=== PATIENT | male | born 1990 | race Caucasian/White ===

== ENCOUNTER → 2016-06-04 | Outpatient (CLI) | payer BC | LOC: MW.CHFP 10:51 | PROVIDERS: ATTEND Physician Assistant | DX: R05 Cough (principal) | CPT/HCPCS: 87804 ==

== ENCOUNTER 2021-09-11 16:04 | Emergency (ER) | payer BC ==
[2021-09-11] MEDS ORDERED: Ketorolac 60 MG/2 ML SDV IM ONE (16:32)
[2021-09-11] MEDS ORDERED: Orphenadrine 60 MG/2 ML Inj IM ONE (16:32)
== END 2021-09-11 18:19 | disposition home or self-care (01) ==
LOC: MW.ED 16:04
DX: M54.6 Pain in thoracic spine (principal); K21.9 Gastro-esophageal reflux disease without esophagitis; Z88.5 Allergy status to narcotic agent; Z88.0 Allergy status to penicillin; Z79.899 Other long term (current) drug therapy
CPT/HCPCS: 72070; 72100; 96372; 99283; J1885; J2360

== ENCOUNTER 2024-07-12 23:55 | Emergency (ER) | payer BC ==
[2024-07-13] MEDS ORDERED: Naloxone 0.4 MG/ML SDV IVPUSH PRN (06:42)
[2024-07-13] MEDS: Ketorolac 30 MG/ML SDV IVPUSH ONE (06:52)
[2024-07-13] MEDS: Morphine 2 MG/ML SYRINGE IVPUSH ONE (06:53)
[2024-07-13] MEDS: Acetaminophen 325 MG Tab PO ONE (08:04)
[2024-07-13] MEDS: LORazepam 0.5 MG Tab PO ONE (08:05)
[2024-07-13] MEDS: oxyCODONE 5 MG Tab PO ONE (11:06)
== END 2024-07-13 12:19 | disposition home or self-care (01) ==
LOC: MW.ED 23:55
DX: M54.12 Radiculopathy, cervical region (principal); R20.0 Anesthesia of skin; Z88.0 Allergy status to penicillin; Z88.8 Allergy status to other drugs, medicaments and biological substances; Z79.899 Other long term (current) drug therapy
CPT/HCPCS: 70551; 72125; 72141; 96374; 96375; 99284; A9270; J1100; J1885; 99283